=== PATIENT | female | born 1940 | race Caucasian/White ===

== ENCOUNTER 2019-02-19 09:39 | Day surgery (SDC) | payer OTHER, BC ==
[2019-02-14 15:17] VITALS: BMI 36.7
[~2019-02-19 09:39] MED LIST: ACETAMINOPHEN 325 MG TABLET (FP) PO PRN; BACITRACIN/POLYMYXIN OPH OINT 3.5 GM TUBE OS ONE; BETAXOLOL HCL 0.25% OPHTHALMIC 10 ML DROPSBTL OS ONE; NEOMYCIN/POLYMYX/HC OPHTHALMIC SUSPENSION 7.5 ML BOTTLE OS ONE; ONDANSETRON 4 MG/2 ML VIAL IVPUSH PRN; oxyCODONE HCL 5 MG TABLET PO PRN
[2019-02-19] MEDS ORDERED: OFLOXACIN 0.3% OPHTHALMIC SOLUTION 5 ML BOTTLE ONE (10:01)
[2019-02-19] MEDS ORDERED: CYCLOPENTOLATE HCL 1% OPHTH SOLN 2 ML BOTTLE ONE (10:01)
[2019-02-19] MEDS ORDERED: TROPICAMIDE 1% OPHTH SOLN 15 ML BOTTLE ONE (10:02)
[2019-02-19] MEDS ORDERED: KETOROLAC TROMETHAMINE 0.5% EYE DROP 1 DROP DROPS ONE (10:02)
[2019-02-19] MEDS ORDERED: PHENYLEPHRINE 2.5% OPHTH SOLN 15 ML BOTTLE ONE (10:02)
[2019-02-19] MEDS: OFLOXACIN 0.3% OPHTHALMIC SOLUTION 5 ML BOTTLE OS SCH ×5 (11:05→11:25)
[2019-02-19] MEDS: TROPICAMIDE 1% OPHTH SOLN 15 ML BOTTLE OS SCH ×5 (11:05→11:25)
[2019-02-19] MEDS: KETOROLAC TROMETHAMINE 0.5% EYE DROP 1 DROP DROPS OS SCH ×5 (11:05→11:25)
[2019-02-19] MEDS: CYCLOPENTOLATE HCL 1% OPHTH SOLN 2 ML BOTTLE OS SCH ×5 (11:05→11:25)
[2019-02-19] MEDS: PHENYLEPHRINE 2.5% OPHTH SOLN 15 ML BOTTLE OS SCH ×5 (11:05→11:25)
[2019-02-19] MEDS ORDERED: MIDAZOLAM HCL 2 MG/2 ML SINGLE DOSE VIAL ONE (11:59)
[2019-02-19] MEDS ORDERED: BACITRACIN/POLYMYXIN OPH OINT 3.5 GM TUBE ONE (12:41)
[2019-02-19] MEDS ORDERED: EPI-SHUGARCAINE (EPINEPHRINE 0.025% & LIDOCAINE-PF 0.75%) 4ML ONE (12:42)
[2019-02-19] MEDS ORDERED: BETAXOLOL HCL 0.25% OPHTHALMIC 10 ML DROPSBTL ONE (12:42)
[2019-02-19] MEDS ORDERED: NEO/POLYMYX B SULF/DEXAMETH OPHTHALMIC 5ML BOTTLE ONE (12:42)
[2019-02-19] MEDS ORDERED: POVIDONE-IODINE 5% OPHTHALMIC PREP 30 ML SOLUTION ONE (12:42)
[2019-02-19] MEDS ORDERED: CHONDROITIN/NA HYALURONATE 0.5 ML DISP.SYRIN IO ONE (13:22)
[2019-02-19] MEDS ORDERED: SODIUM HYALURONATE 8.5 MG/0.85 ML DISP.SYRIN IO ONE (13:22)
[2019-02-19] MEDS ORDERED: NEOMYCIN/POLYMYX/HC OPHTHALMIC SUSPENSION 7.5 ML BOTTLE OS ONE (13:53)
[2019-02-19] MEDS ORDERED: BACITRACIN/POLYMYXIN OPH OINT 3.5 GM TUBE OS ONE (13:53)
[2019-02-19] MEDS ORDERED: BETAXOLOL HCL 0.25% OPHTHALMIC 10 ML DROPSBTL OS ONE (13:53)
[2019-02-19] MEDS ORDERED: ACETAMINOPHEN 325 MG TABLET (FP) PO PRN (14:03)
[2019-02-19 14:11] VITALS: TEMP 98.2
[2019-02-19] MEDS ORDERED: ACETAMINOPHEN 325 MG TABLET (FP) ONE (14:12)
[2019-02-19 14:39] VITALS: BP 129/76; PULSE 80
--- NOTE | 2019-02-20 13:35 | OP ---
DATE OF OPERATION: 02/19/2019 PREOPERATIVE DIAGNOSIS: Cataract, left eye. POSTOPERATIVE DIAGNOSIS: Cataract, left eye. PROCEDURE: Cataract extraction via phacoemulsification with insertion of posterior chamber lens implant, left eye. SURGEON: Keith Abbott MD TRAFFIC MANAGER: Rima Nuñez MD ANESTHESIA: Topical with sedation. ESTIMATED BLOOD LOSS: Less than 1 mL. COMPLICATIONS: None. SPECIMENS: None. PROCEDURE: The patient was identified in the holding area. After all risks, benefits and alternatives were explained to the patient, informed consent was obtained. The left eye was marked with a marking pen. The patient then entered the operating room on an eye stretcher. After a formal timeout was performed, topical tetracaine eye drops were instilled onto the left eye. The left eye was then prepped and draped in the usual sterile fashion. An eyelid speculum was placed beneath the eyelids of the left eye. An inferotemporal paracentesis incision was created using a 15-degree blade. Topical preservative-free epinephrine and preservative-free lidocaine was then injected into the anterior chamber. Viscoelastic was then injected into the anterior chamber. A 2.4-mm keratome blade was then used to make a superotemporal incision. A 360-degree continuous curvilinear capsulorhexis was then created using a bent cystitome and Utrata forceps. Hydrodissection was performed using balanced saline solution on a cannula. Phacoemulsification was introduced to dissemble and remove the nucleus in its entirety. Irrigation/aspiration was then used to remove any remaining cortical material from the eye. The capsular bag was refilled using viscoelastic. An Jan model [id number] with a power of 24.0 diopters, serial number [id number], was inspected, and found to be defect-free, and injected into the capsular bag. Irrigation/aspiration was then used to remove any remaining cortical and viscoelastic from the eye. The anterior chamber was reformed using balanced saline solution. Intracameral injections of more balanced salt solution was injected and all wounds were hydrated with balanced saline solution and noted to be watertight. There was a red reflex present, the anterior chamber was deep, the lens was perfectly centered in the capsular bag, and the eye had adequate pressure. Topical antibiotic eye drops and ointment were then administered to the left eye. The eyelid speculum was removed from the left eye. The left eye was shielded. The patient tolerated the procedure well, and left the operating room in stable condition, to follow up in the [facility] tomorrow morning at 10:00. KEITH ABBOTT M.D. RASTA/[id number]
== END 2019-02-19 15:10 | disposition home or self-care (01) ==
LOC: FASU 09:39
PROVIDERS: ATTEND Ophthalmology
PROC: 08RK3JZ Replacement of Left Lens with Synthetic Substitute, Percutaneous Approach (ICD-10-PCS; principal; 2019-02-19 13:22)
DX: H26.9 Unspecified cataract (principal)